=== PATIENT | female | born 1975 ===

== ENCOUNTER 2023-10-04 08:26 | Outpatient (AMB) | payer MEDICAID, SELFPAY ==
[2023-10-04 08:29] VITALS: BP 108/72; PULSE 88; RESP 14; O2SAT 98; BMI 31.3
--- NOTE | 2023-10-04 08:29 | A.OFFVIS_ITS ---
Vital Signs 10/04/23 08:29 Height 5 ft 2.5 in Weight 174 lb BMI 31.3 BP 108/72 Blood Pressure Location Lt brachial Position Sitting Respiration 14 Pulse 88 Pulse Source Pulse Oximeter Pulse Oximetry (%) 98 Oxygen Delivery Method Room Air Intake Visit Reasons: hip/low back pain Allergies Penicillins Adverse Reaction (Severe, Verified 10/04/23 08:30) Rash Medication List - Last Reconciled 10/04/23 by Gerri Hilton LPN atorvastatin 20 mg PO BEDTIME cetirizine 10 mg PO DAILY PRN cholecalciferol (vitamin D3) (Vitamin D3) 50 mcg PO DAILY cyanocobalamin (vitamin B-12) 1,000 mcg IM diclofenac sodium ER 100 mg PO DAILY escitalopram oxalate 20 mg PO DAILY hydroxyzine HCl 25 mg PO BEDTIME magnesium oxide 500 mg PO DAILY metformin ER mg PO omeprazole 40 mg PO QAM pregabalin 50 mg PO TID tizanidine 2 mg PO BID topiramate 100 mg PO BID HPI HPI hip/low back pain: Details: 47-year-old female presenting with history of fibromyalgia, axial low back pain, worse on the left side as well as left hip pain. Patient reports that in 2013 she suffered from a disc herniation for which she underwent an MRI and nerve blocks that significantly helped with her low back pain radiating down her left leg. Since then she had somewhat moderate symptoms of similar nature but these have progressed over the last year or so. She states that she underwent an MRI again, but this did not show a disc herniation that was previously seen. However she continues to have similar symptoms as she did when she did have the disc herniation. Over the last 2 years she has started experiencing significant left hip pain as well which is associated with neck and upper back pain. Pain in the lower back is described as axial in nature across the lower back, worse on the left side. Occasionally she gets left leg radicular symptoms which are associated with burning and pins and needle sensation in her left lower extremity. The pain is described as 7 to 8/10 in intensity, and it is worse when she is active. It is down to about 4 to 5/10 in intensity when she is resting. Weather changes and movements make it worse. 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 History is also notable for fibromyalgia for which she takes pregabalin 50 mg 3 times a day. She has previously had a gastric sleeve as well as breast reduction surgeries. She also takes topiramate for migraines and diclofenac and tizanidine as needed. [facility] Medical History (Updated 10/04/23 @ 10:19 by Mekhi Reece MD) Hyperlipidemia Obesity Surgical History (Updated 10/04/23 @ 10:19 by Mekhi Reece MD) H/O: hysterectomy Status post breast reduction S/P gastric sleeve procedure Physical Exam Vital Signs: Last Vital Signs Pulse 88 10/04/23 08:29 Resp 14 10/04/23 08:29 BP 108/72 10/04/23 08:29 Pulse Ox 98 10/04/23 08:29 Oxygen Delivery Method Room Air 10/04/23 08:29 BMI result Body Mass Index 31.3 On exam today: Appears afebrile. Alert and oriented. Mood and affect appropriate. Follows and participates in conversation appropriately. Respiratory effort is unlabored. Able to transition from sit to stand unassisted. Ambulates with bilaterally normal heel strike and toe off. Able to stand and walk on toes and heels. Lumbar extension is significantly limited. Facet loading reproduces low back pain. Anterior column loading reproduces discomfort in the lower back. Results Reviewed Results Reviewed: MR Lumbar Spine (C-) CPT 69792 INDICATION: Reason For Exam: M54.16/RADICULOPATHY, LUMBAR REGION, , Low back pain and left radicular symptoms. Please evaluate for worsening disc pathology, spinal stenosis and left-sided nerve root compression. TECHNIQUE: MRI of the lumbar spine was performed without intravenous contrast utilizing sagittal SPACE with axial reformats, sagittal T1, sagittal T2, and sagittal STIR sequences. COMPARISON: None FINDINGS: NUMBERING: The study assumes 5 [id number] lumbar type vertebral bodies. ALIGNMENT, VERTEBRAE, MARROW, AND DISCS: Alignment is normal. Vertebral body heights are preserved. There is no significant marrow signal abnormality. There is disc desiccation at L3-L4 and L4-L5. Otherwise, the intervertebral discs are maintained. CONUS: The conus is normal in signal and contour, with normal level of termination at L1. PARASPINAL TISSUES: The paraspinal soft tissues are unremarkable. DETAILED FINDINGS BY LEVEL: L1-L2: No significant canal stenosis or neural foraminal narrowing. L2-L3: No significant canal stenosis or neural foraminal narrowing. L3-L4: No significant canal stenosis or neural foraminal narrowing. L4-L5: No significant canal stenosis or neural foraminal narrowing. L5-S1: Right-sided facet spurring. No significant canal stenosis or neural foraminal narrowing. IMPRESSION: Mild degenerative changes as described above but no significant spinal canal or neural foraminal stenosis and no evidence of nerve root impingement. Assessment & Plan Assessment & Plan (1) Fibromyalgia: Code(s): M79.7 - Fibromyalgia Category: Medical (2) Muscle spasm: Comment: Lower back Code(s): M62.838 - Other muscle spasm Category: Medical (3) Lumbar spondylosis: Code(s): M47.816 - Spondylosis without myelopathy or radiculopathy, lumbar region Category: Medical (4) Degeneration, intervertebral disc, lumbar: Code(s): M51.36 - Other intervertebral disc degeneration, lumbar region Category: Medical (5) Lumbar radiculitis: Code(s): M54.16 - Radiculopathy, lumbar region Category: Medical Plan 47-year-old female with a history of past lumbar disc herniation with residual radicular symptoms, associated with axial low back symptoms as well and significant muscle spasm with straightening of her lumbar lordosis on MRI. No other significant findings on lumbar MRI. In setting of fibromyalgia and migraine, she likely has central sensitization with subsequent muscle spasm and pain symptoms out of proportion to her imaging findings. I recommended a focused trial of continued conservative management including stretching, aquatherapy, inversion exercises, acupuncture and lifestyle modifications. If these are not helpful, we can undertake a trial of trigger point injections as well. She does have some desiccated discs in her lumbar spine MRI, but nothing to explain radicular symptoms down her left leg. It could be a chronic radiculitis but I would not undertake any injections to her spine prior to exhausting further conservative management. Patient will return to clinic for follow-up in 3 6 months. Patient is agreement with the plan. Coding Level of Care Code New Pt Level 4 (54272) Diagnoses Fibromyalgia M79.7 Muscle spasm M62.838 Lumbar spondylosis M47.816 Degeneration, intervertebral disc, lumbar M51.36 Lumbar radiculitis M54.16
== END 2023-10-04 09:01 | disposition home or self-care (01) ==
LOC: HO.PMC 08:26
PROVIDERS: PCP Physician Assistant; Visit Provider Internal Medicine
DX: M79.7 Fibromyalgia (principal); M62.838 Other muscle spasm; M47.816 Spondylosis without myelopathy or radiculopathy, lumbar region; M51.36 Other intervertebral disc degeneration, lumbar region; M54.16 Radiculopathy, lumbar region
CPT/HCPCS: 99204

== ENCOUNTER → 2023-10-04 08:26 | Outpatient (BNVA) | payer MEDICAID, SELFPAY | PROVIDERS: PCP Physician Assistant; Visit Provider Internal Medicine | DX: M79.7 Fibromyalgia (principal); M62.838 Other muscle spasm; M47.816 Spondylosis without myelopathy or radiculopathy, lumbar region; M51.36 Other intervertebral disc degeneration, lumbar region; M54.16 Radiculopathy, lumbar region | CPT/HCPCS: 99202 ==